=== PATIENT | male | born 1945 | race Caucasian/White ===

== ENCOUNTER 2023-09-05 07:00 | Outpatient (CLI) | payer MEDICARE, OTHER | END 2023-09-05 23:59 | disposition home or self-care (01) | LOC: LAB.S 07:00 | PROVIDERS: ATTEND Emergency Medicine | DX: L03.031 Cellulitis of right toe (principal) | CPT/HCPCS: 87070; 87205 ==

== ENCOUNTER 2023-10-08 08:00 | Outpatient (CLI) | payer MEDICARE, OTHER ==
--- NOTE | 2023-10-08 16:47 | XRAY Report ---
Toe(s) 2+V RT HISTORY: 78 years of age, CELLULITIS, RIGHT TOE TECHNIQUE: Toe(s) 2+V RT COMPARISON: None. FINDINGS/IMPRESSION: Small soft tissue ulceration in the dorsal fourth toe. Cortical irregularity at the fourth distal pha langeal base and the fourth middle phalangeal base, raises concern for osteomyelitis. Recommend furth er evaluation with MRI. Extensive vascular calcification in the right foot. No acute fracture or dislocation. Reviewed by: Tonja Smyth MD on 10/08/2023 4:45 PM PDT Approved by: Tonja Smyth MD on 10/08/2023 4:45 PM PDT Station ID: [id number]
== END 2023-10-08 23:59 | disposition home or self-care (01) ==
LOC: DI.S 08:00
PROVIDERS: ATTEND Emergency Medicine
DX: L03.031 Cellulitis of right toe (principal); L97.512 Non-pressure chronic ulcer of other part of right foot with fat layer exposed; R93.6 Abnormal findings on diagnostic imaging of limbs
CPT/HCPCS: 87070; 87205

== ENCOUNTER 2023-10-18 08:00 | Outpatient (CLI) | payer MEDICARE, OTHER | END 2023-10-18 23:59 | disposition home or self-care (01) | LOC: LAB.S 08:00 | PROVIDERS: ATTEND Emergency Medicine | DX: L03.031 Cellulitis of right toe (principal) | CPT/HCPCS: 87070; 87205 ==